=== PATIENT | female | born 1950 | race Caucasian/White ===

== ENCOUNTER → 2017-11-04 | Outpatient (CLI) | payer MEDICARE, OTHER ==
[2017-11-04 07:57] LABS: Basophils % (A) 0 %; Eosinophils # (A) 0.1 k/uL (0-0.7); Eosinophils % (A) 2 %; HCT 41.3 % (34.0-46.0); Lymphocytes # (A) 1.4 k/uL (1.0-4.8); Lymphocytes % (A) 28 %; MCH 30.4 pg (25.0-35.0); MCV 89.7 fL (80.0-100.0); Mean Platelet Volume 7.3; Monocytes # (A) 0.3 k/uL (0-1.0); Monocytes % (A) 6 %; Neutrophils % (A) 59 %; Platelet Count 288 k/uL (150-450); RDW 13.2 % (11.5-15.5)
[2017-11-04 08:09] LABS: Appearance,Urine Cloudy (Clear); Bacteria,Urine Occasional /hpf; Bilirubin,Urine Negative (Negative); Blood,Urine Negative (Negative); Color,Urine Yellow; Glucose,Urine (UA) Negative (Negative); Hyaline Casts,Urine 1 /lpf (0-2); Ketones,Urine Negative (Negative); Leukocyte Esterase,Urine Large (Negative); Mucus,Urine Rare /hpf; Nitrite,Urine Negative (Negative); Protein,Urine Negative (Negative); RBC,Urine 4 /hpf (0-5); Specific Gravity,Urine 1.017 (1.001-1.035); Squamous Epithelial Cell,Urine 15 /hpf (0-4); Urobilinogen,Urine <2.0 mg/dL (<2.0); WBC,Urine 32 /hpf (0-5)
[2017-11-04 08:15] LABS: Albumin 4.2 g/dL (3.5-5.0); Calcium 9.4 mg/dL (8.4-10.2); Potassium 4.7 mmol/L (3.5-5.1); Total Bilirubin 0.7 mg/dL (0.2-1.3); Total Protein 6.8 g/dL (6.3-8.2)
[2017-11-04 17:39] LABS: Hemoglobin A1C 5.4 % (4.0-6.0)
== END | disposition home or self-care (01) ==
LOC: LABWHC1 07:32
PROVIDERS: ATTEND Family Medicine
DX: Z51.81 Encounter for therapeutic drug level monitoring (principal); Z79.899 Other long term (current) drug therapy
CPT/HCPCS: 36415; 80053; 80061; 81001; 82550; 83036; 84443; 85025

== ENCOUNTER → 2018-03-21 | Outpatient (CLI) | payer MEDICARE, OTHER ==
[2018-03-21 08:51] LABS: Basophils # (A) 0.1 k/uL (0-0.2); Basophils % (A) 1 %; Eosinophils # (A) 0.1 k/uL (0-0.7); Eosinophils % (A) 3 %; HCT 40.9 % (34.0-46.0); HGB 13.7 gm/dL (11.4-16.0); Lymphocytes # (A) 1.2 k/uL (1.0-4.8); Lymphocytes % (A) 28 %; MCH 30.7 pg (25.0-35.0); MCHC 33.4 g/dL (31.0-37.0); MCV 92.1 fL (80.0-100.0); Mean Platelet Volume 7.4; Monocytes # (A) 0.2 k/uL (0-1.0); Monocytes % (A) 5 %; Neutrophils # (A) 2.7 k/uL (1.3-7.7); Neutrophils % (A) 60 %; Platelet Count 257 k/uL (150-450); RBC 4.44 m/uL (3.80-5.40); RDW 13.2 % (11.5-15.5); WBC 4.5 k/uL (3.8-10.6)
[2018-03-21 09:17] LABS: Albumin 4.2 g/dL (3.5-5.0); Calcium 9.5 mg/dL (8.4-10.2); Potassium 4.9 mmol/L (3.5-5.1); Total Bilirubin 0.6 mg/dL (0.2-1.3); Total Protein 6.8 g/dL (6.3-8.2)
== END | disposition home or self-care (01) ==
LOC: LABWHC1 08:04
PROVIDERS: ATTEND Internal Medicine Gastroenterology
DX: K76.0 Fatty (change of) liver, not elsewhere classified (principal)
CPT/HCPCS: 36415; 80053; 85025

== ENCOUNTER → 2019-03-15 | Outpatient (CLI) | payer MEDICARE, OTHER ==
--- NOTE | 2019-03-15 10:22 | US ---
EXAMINATION TYPE: US kidneys/renal and bladder DATE OF EXAM: 03/15/2019 COMPARISON: 2016 CLINICAL HISTORY: R94.4 ABN KIDNEY FUNCTIONS. EXAM MEASUREMENTS: Right Kidney: 9.0 x 3.9 x 3.2 cm Left Kidney: 9.3 x x5.1 x 3.8 cm Post Void Residual Volume: 4.7 mL Right Kidney: Probable small cortical cyst 1.0x 0.6 x0.9 cm Left Kidney: wnl Bladder: wnl Bilateral Jets seen: Yes Normal Post Void Residual: Yes There is no evidence for hydronephrosis at this point in time. Some cortical thinning in both kidneys is present. No nephrolithiasis is seen. No masses are identified. The urinary bladder is poorly di stended and suboptimally evaluated. Bilateral ureteral jets are seen. Minimal residual urine is seen after voiding. IMPRESSION: No hydronephrosis is evident bilaterally.
== END | disposition home or self-care (01) ==
LOC: RADUSWWP 06:42
PROVIDERS: ATTEND Family Medicine
DX: R94.4 Abnormal results of kidney function studies (principal)
CPT/HCPCS: 76770

== ENCOUNTER → 2019-10-04 | Outpatient (CLI) | payer MEDICARE, OTHER ==
--- NOTE | 2019-10-04 11:39 | ECHOS ---
STRESS ECHOCARDIOGRAM INDICATIONS: Chest pain. MEDICATIONS: BASELINE HEART RATE: 71 BASELINE BLOOD PRESSURE: 106/50 MAXIMUM HEART RATE: 144 MAXIMUM BLOOD PRESSURE: 155/69 85% MPHR: 128 100% MPHR: 150 METS: 7.1 MAXIMUM STAGE REACHED: II TOTAL EXERCISE TIME: 6 minutes 22 seconds CLINICAL INFORMATION: Baseline rhythm is sinus mechanism, rate of 71, normal axis and intervals, poor R-wave progression. Baseline blood pressure 106/57 mmHg. Patient exercised on Jaron protocol for 6 minutes 22 seconds. Reaching peak rate of 144 beats per minute which is equal to 96% maximum predicted heart rate. Peak blood pressure 155/69 mmHg. Test was terminated secondary to fatigue. There was no chest pain or electrocardiograph monitoring revealed no evidence of diagnostic ischemic ST deviation. Baseline echocardiogram revealed normal wall motion. At peak exercise, there was normal wall thickening and motion with no hypokinesis or dyskinesis. CONCLUSION: 1. Good exercise tolerance with normal electrocardiograph response to exercise. 2. Normal stress echocardiogram with no evidence of stress induced ischemia. MMODL / IJN: [id number] /
== END | disposition home or self-care (01) ==
LOC: RADNMMAIN 09:03
PROVIDERS: ATTEND Family Medicine
DX: R07.9 Chest pain, unspecified (principal)
CPT/HCPCS: C8930; Q9950; 93351

== ENCOUNTER → 2020-02-07 | Outpatient (CLI) | payer MEDICARE, OTHER ==
--- NOTE | 2020-02-07 09:21 | US ---
EXAMINATION TYPE: US pelvic complete DATE OF EXAM: 02/07/2020 COMPARISON: NONE CLINICAL HISTORY: Left Lower quad pain, R10.32. Intermittent midline to LLQ pain; ; C section; LM P 20 years ago TECHNIQUE: Transabdominal (TA). Transabdominal sonographic images of the pelvis were acquired. Date of LMP: mid 50's EXAM MEASUREMENTS: Uterus: 7.0 x 3.2 x 2.5 cm Endometrial Stripe: 0.4 cm Right Ovary: 1.6 x 1.8 x 1.7 cm Left Ovary: 2.4 x 1.3 x 1.5 cm 1. Uterus: Anteverted 2. Endometrium: thickness is wnl for post menopausal patient 3. Right Ovary: wnl 4. Left Ovary: wnl Spectral, color and waveform Doppler imaging shows good arterial and venous flow within the ovaries . 5. Bilateral Adnexa: wnl 6. Posterior cul-de-sac: small amount of free fluid noted here = 1.1 x 1.9 x 0.6 x 0.523 = 0.7ml and is wnl. Heterogeneous anteverted uterus with endometrial stripe within normal limits. Trace free fluid in pel nils cul-de-sac. Visualization of symmetric nonenlarged ovaries correlating with patient's postmenopau allie age. No concerning adnexal mass IMPRESSION: Trace free fluid pelvic cul-de-sac otherwise unremarkable study.
== END | disposition home or self-care (01) ==
LOC: RADUSWWP 08:13
PROVIDERS: ATTEND Internal Medicine Gastroenterology
DX: R10.32 Left lower quadrant pain (principal)
CPT/HCPCS: 76856

== ENCOUNTER → 2020-09-08 | Outpatient (CLI) | payer MEDICARE, OTHER ==
--- NOTE | 2020-09-09 11:15 | MM ---
Reason for exam: screening (asymptomatic). Last mammogram was performed 1 year and 7 months ago. History: Patient is postmenopausal. Physical Findings: A clinical breast exam by your physician is recommended on an annual basis and results should be correlated with mammographic findings. MG 3D Screening Mammo W/Cad Bilateral CC and MLO view(s) were taken. Prior study comparison: February 07, 2019, mammogram, performed at [facility]. August 03, 2017, mammogram, performed at [facility]. The breast tissue is heterogeneously dense. This may lower the sensitivity of mammography. There are benign appearing round calcifications bilaterally. There is no discrete abnormality. ASSESSMENT: Benign, BI-RAD 2 RECOMMENDATION: Routine screening mammogram of both breasts in 1 year.
== END | disposition home or self-care (01) ==
LOC: RADMAMWWP 08:19
PROVIDERS: ATTEND Obstetrics & Gynecology
DX: Z12.31 Encounter for screening mammogram for malignant neoplasm of breast (principal)
CPT/HCPCS: 77063; 77067

== ENCOUNTER 2021-09-22 08:21 | Day surgery (SDC) | payer MEDICARE, OTHER ==
[2021-09-21 08:48] VITALS: BMI 38.0
[~2021-09-22 08:21] MED LIST: LACTATED RINGERS 1,000 ML IV SCH; LIDOCAINE 1% (10MG/ML) FOR IV START INTRADERMA PRN
[2021-09-22 09:24] VITALS: TEMP 97.5
[2021-09-22] MEDS ORDERED: PROPOFOL 10 MG/ML 20 ML VIAL IV ONE (10:02)
[2021-09-22] MEDS ORDERED: LIDOCAINE 1% INJ 10MG/ML (20 ML MDV) ONE (10:02)
--- NOTE | 2021-09-22 10:27 | P.PCN ---
Date of Procedure: 09/22/21 Procedure(s) Performed: BRIEF HISTORY: Patient is a 71-year-old pleasant white female scheduled for an elective colonoscopy as a part of screening for colorectal neoplasia and family history of colon cancer diagnosed in her brother in his early 60s. PROCEDURE PERFORMED: Colonoscopy snare polypectomy. PREOPERATIVE DIAGNOSIS: Screening for colon cancer and family history of colon cancer. IV sedation per Anesthesia. PROCEDURE: After informed consent was obtained, the patient, was brought into the endoscopy unit. IV sedation was administered by Anesthesia under continuous monitoring. Digital rectal examination was normal. Initially the Olympus CF-160 flexible video colonoscope was then inserted in the rectum, gradually advanced into the cecum without any difficulty. Careful examination was performed as the scope was gradually being withdrawn. Ileocecal valve and the appendiceal orifice were visualized and appeared normal. Prep was excellent. Mucosa of the cecum, a 5 mm polyp that was removed by snare polypectomy. In the hepatic flexure there was a 1 cm polyp removed by snare polypectomy. In the descending colon there was another 1 cm polyp removed by snare polypectomy. ascending colon, transverse colon, descending colon, sigmoid colon, and rectum appeared normal. Retroflexion was performed in the rectum and no lesions were seen. The patient tolerated the procedure well. IMPRESSION: 5 mm cecal polyp status post polypectomy 1 cm hepatic flexure polyp status post snare polypectomy 1 cm; descending polyp status post snare polypectomy. RECOMMENDATIONS: Findings of this examination were discussed with the patient as well as her family. She was advised to follow with the biopsy result. If the biopsies adenoma she can have a repeat colonoscopy in 3 years.
[2021-09-22 11:42] VITALS: BP 178/94; PULSE 85; RESP 20
== END 2021-09-22 12:08 | disposition home or self-care (01) ==
LOC: ORWHC2ENDO 08:21
PROVIDERS: ATTEND Internal Medicine Gastroenterology
DX: Z12.11 Encounter for screening for malignant neoplasm of colon (principal); Z80.0 Family history of malignant neoplasm of digestive organs; D12.4 Benign neoplasm of descending colon; K63.5 Polyp of colon; I10 Essential (primary) hypertension; E78.5 Hyperlipidemia, unspecified; Z79.899 Other long term (current) drug therapy
CPT/HCPCS: 88305; 45385; J2001; J2704

== ENCOUNTER → 2021-09-25 | Outpatient (CLI) | payer MEDICARE, OTHER ==
--- NOTE | 2021-09-29 09:42 | MM ---
Reason for exam: screening (asymptomatic). Last mammogram was performed 1 year and 1 month ago. History: Patient is postmenopausal. Physical Findings: A clinical breast exam by your physician is recommended on an annual basis and results should be correlated with mammographic findings. MG 3D Screening Mammo W/Cad Bilateral CC and MLO view(s) were taken. Prior study comparison: September 08, 2020, bilateral MG 3d screening mammo w/cad. February 07, 2019, mammogram, performed at [facility]. The breast tissue is heterogeneously dense. This may lower the sensitivity of mammography. Benign bilateral oil cyst calcifications. No significant changes when compared with prior studies. ASSESSMENT: Negative, BI-RAD 1 RECOMMENDATION: Routine screening mammogram of both breasts in 1 year. Patient should continue monthly self breast exams. A negative report should not preclude additional follow up of suspicious palpable abnormalities.
== END | disposition home or self-care (01) ==
LOC: RADMAMWWP 07:15
PROVIDERS: ATTEND Obstetrics & Gynecology
DX: Z12.31 Encounter for screening mammogram for malignant neoplasm of breast (principal); Z78.0 Asymptomatic menopausal state
CPT/HCPCS: 77063; 77067

== ENCOUNTER → 2023-02-24 | Outpatient (CLI) | payer MEDICARE, OTHER ==
--- NOTE | 2023-02-24 13:24 | CT ---
EXAMINATION TYPE: CT abdomen pelvis wo con DATE OF EXAM: 02/24/2023 COMPARISON: None HISTORY: Left lower quadrant pain X [address] DLP: 547.6 mGycm Examination of the solid and hollow viscera is limited given the lack of contrast. FINDINGS: LUNG BASES: No evidence for nodule. No evidence for infiltrate. LIVER/GB: The gallbladder is surgically absent. No space-occupying hepatic lesion. PANCREAS: No pancreatic mass identified. No inflammatory process seen. SPLEEN: No evidence for splenomegaly. No intrasplenic lesions seen. ADRENALS: No adrenal nodules identified. No evidence for thickening. KIDNEYS: Renal cystic changes noted bilaterally. No nephrolithiasis. No hydronephrosis. BOWEL: Nonvisualization of the appendix. No evidence of bowel obstruction. No inflammatory process. T here is a gastric diverticulum noted. Sigmoid diverticula without evidence for diverticulitis. Lymph nodes: No evidence for adenopathy greater than 1 cm. Abdominal aorta: Atheromatous changes seen. No evidence for aneurysm. Genital organs: No significant abnormality. Other: No significant abnormality. IMPRESSION: No acute intra-abdominal process to account for the patient's symptoms.
== END | disposition home or self-care (01) ==
LOC: RADCTMAIN 12:44
PROVIDERS: ATTEND Family Medicine
DX: R10.9 Unspecified abdominal pain (principal)
CPT/HCPCS: 74176

== ENCOUNTER → 2024-02-03 | Outpatient (CLI) | payer MEDICARE, OTHER ==
--- NOTE | 2024-02-03 08:18 | MM ---
Reason for Exam: Screening (asymptomatic). Last mammogram was performed 2 year(s) and 5 month(s) ago. Patient History: Menarche at age 12. First Full-Term at age 29. Late child-bearing (after 29). Postmenopausal. Risk Values: Sheri 5 year model risk: 2.4%. NCI Lifetime model risk: 5.6%. Prior Study Comparison: 08/03/2017 Screening Mammogram, [facility]. 02/07/2019 Screening Mammogram, [facility]. 09/08/2020 Bilateral Screening Mammogram, [facility]. 09/25/2021 Bilateral Screening Mammogram, [facility]. Tissue Density: The breasts are heterogeneously dense, which may obscure small masses. Findings: Analyzed By CAD. There is no suspicious group of microcalcifications or new suspicious mass in either breast. Overall Assessment: Negative, BI-RAD 1 Management: Screening Mammogram of both breasts in 1 year. . Patient should continue monthly self-breast exams. A clinical breast exam by your physician is recommended on an annual basis. This exam should not preclude additional follow-up of suspicious palpable abnormalities. Note on Sheri scores and lifetime risk: 1. A Sheri score greater than 3% is considered moderate risk. If this is the case, consider specialist referral to assess eligibility for a risk reducing agent. 2. If overall lifetime risk for the development of breast cancer is 20% or higher, the patient may qualify for future screening with alternating mammogram and breast MRI. Electronically signed and approved by: Gerald Donald M.D. Radiologis
== END | disposition home or self-care (01) ==
LOC: RADMAMWWP 07:05
PROVIDERS: ATTEND Obstetrics & Gynecology
DX: Z12.31 Encounter for screening mammogram for malignant neoplasm of breast (principal); R92.333 Mammographic heterogeneous density, bilateral breasts; Z78.0 Asymptomatic menopausal state
CPT/HCPCS: 77063; 77067